=== PATIENT | female | born 1950 ===

== ENCOUNTER → 2022-04-29 12:46 | Outpatient (BNVA) | payer OTHER, SELFPAY | PROVIDERS: PCP Pediatrics; Visit Provider Psychiatry & Neurology Neurology | DX: R41.3 Other amnesia (principal); R29.6 Repeated falls; F10.20 Alcohol dependence, uncomplicated; S06.5X0A Traumatic subdural hemorrhage without loss of consciousness, initial encounter; W18.39XA Other fall on same level, initial encounter; Y93.89 Activity, other specified; Y92.9 Unspecified place or not applicable; Y99.8 Other external cause status | CPT/HCPCS: 99202 ==